=== PATIENT | male | born 1975 | race Hispanic/Latino ===

== ENCOUNTER 2019-07-22 14:27 | Emergency (ER) | payer BC, OTHER ==
[~2019-07-22] VITALS: Ht 170.2 cm; Wt 93.0 kg
[~2019-07-22 14:27] MED LIST: LISINOPRIL10 MG PO
[2019-07-22] MEDS ORDERED: SODIUM CHLORIDE 0.9% 1000ML 1,000 ML IV STA (14:31)
[2019-07-22] MEDS ORDERED: PRAVASTATIN SOD40 MG (14:41)
[2019-07-22] MEDS ORDERED: LOSARTAN POTASS50 MG (14:41)
[2019-07-22] MEDS ORDERED: LORAZEPAM INJ 2 MG/ML VIAL IV NR (15:00)
[2019-07-22] MEDS ORDERED: ASPIRIN 81 MG CHEW TAB PO ONE (15:00)
[2019-07-22 15:17] LABS: BASOPHILS % 0.4 % (0.0-1.0); EOSINOPHILS # (AUTO) 0.1 (0.0-0.4); EOSINOPHILS % 0.8 % (0.0-6.0); HEMATOCRIT 43.2 % (38.2-49.6); HEMOGLOBIN 14.4 g/dL (14.0-18.0); LYMPHOCYTES # (AUTO) 1.4 (1.0-3.2); LYMPHOCYTES % 19.7 % (18.0-39.1); MEAN CORPUSCULAR HEMOGLOBIN 28.2 pg (28-32); MEAN CORPUSCULAR HGB CONC 33.3 g/dL (31-35); MEAN CORPUSCULAR VOLUME 84.7 fL (81-99); MONOCYTES # (AUTO) 0.5 (0.2-0.8); MONOCYTES % 7.1 % (4.4-11.3); NEUTROPHILS # (AUTO) 5.1 (2.1-6.9); NEUTROPHILS % 71.7 % (38.7-80.0); PLATELET COUNT 225 x10e3/uL (140-360); RED CELL DISTRIBUTION WIDTH 12.1 % (11.7-14.4)
--- NOTE | 2019-07-22 15:30 | NUR ---
Pt reports feeling better, denies CP or SOB. Pt vitals stable. Remains on cardiac monitoring. Will continue to monitor.
[2019-07-22 15:34] LABS: ALANINE AMINOTRANSFERASE 25 IU/L (0-55); ALBUMIN 4.4 g/dL (3.5-5.0); ALBUMIN/GLOBULIN RATIO 1.6 (0.8-2.0); ALKALINE PHOSPHATASE 76 IU/L (40-150); ANION GAP 13.1 mmol/L (8-16); BLOOD UREA NITROGEN 17 mg/dL (7-26); BUN/CREATININE RATIO 19 (6-25); CALCIUM 9.6 mg/dL (8.4-10.2); CARBON DIOXIDE 27 mmol/L (22-29); CHLORIDE 98 mmol/L (98-107); CREATINE KINASE 201 IU/L (30-200); EST GLOMERULAR FILTRATION RATE > 60 ML/MIN (60-); GLUCOSE 100 mg/dL (74-118); POTASSIUM 3.1 mmol/L (3.5-5.1); SODIUM 135 mmol/L (136-145)
[2019-07-22 15:55] LABS: BILIRUBIN,URINE NEGATIVE (NEGATIVE); CLARITY,URINE CLEAR (CLEAR); COLOR,URINE YELLOW (YELLOW); KETONES,URINE NEGATIVE (NEGATIVE); LEUKOCYTE ESTERASE ,URINE NEGATIVE (NEGATIVE); NITRITE,URINE NEGATIVE (NEGATIVE); PROTEIN,URINE DIPSTICK NEGATIVE (NEGATIVE); URINE UROBILINOGEN 0.2 mg/dL (0.2 - 1)
[2019-07-22 16:08] LABS: BACTERIA,URINE MANY /HPF; MUCUS,URINE MODERATE (RARE)
--- NOTE | 2019-07-22 16:17 | Diagnostic Imaging Report ---
Chest, 1 view, 07/22/2019. History: Tachycardia. Comparison: None available. Findings: The cardiomediastinal silhouette and pulmonary vasculature are within normal limits for a portable exam. There is no focal consolidation or pleural effusion. There are no acute osseous or soft tissue abnormalities. Impression: No acute cardiopulmonary abnormality. Signed by: Curtis Knott on 07/22/2019 4:14 PM
[2019-07-22] MEDS ORDERED: POTASSIUM CHLORIDE 20 MEQ TAB CR PO NR (16:30)
== END 2019-07-22 17:18 | disposition home or self-care (01) ==
LOC: ER 14:27
DX: R00.2 Palpitations (principal); F41.1 Generalized anxiety disorder; I10 Essential (primary) hypertension
CPT/HCPCS: 36415; 71045; 80053; 81001; 82550; 82553; 84484; 85025; 93005; 99283; J7030